=== PATIENT | male | born 1995 | race Caucasian/White ===

== ENCOUNTER 2020-12-29 15:12 | Emergency (ER) | payer OTHER, SELFPAY ==
[2020-12-29 15:17] VITALS: BP 123/66; PULSE 77; RESP 20; TEMP 36.7; O2SAT 96
--- NOTE | 2020-12-29 15:28 | ED.GENADUL_ITS ---
Discharge Plan Disposition Patient Disposition: HOME Condition: Stable Discharge Details Clinical Impression: Hand laceration Primary Care Provider: Unknown,Unknown ED Provider: Laurel Steven Home Meds and New Rx's Prescriptions: New cephalexin 500 mg capsule 500 mg PO TID 5 Days Qty: 15 RF: 0 Discharge Instructions Instructions: Laceration (ED) Additional Instructions: Keep wound clean and dry. Cover wound with bandage if risk of contamination. Otherwise you can keep the wound open to air if resting at home to allow edges to dry and heal. Alternate tylenol and motrin as needed and directed for pain. A prescription for antibiotics was sent electronically to your pharmacy. Return to the emergency department in 7 days for suture removal. Return immediately to the emergency department if you develop any worsening or new concerning symptoms. Discharge Data Discharge Physician: Laurel Steven Medical Decision Making 25-year-old male presents with left hand laceration sustained after fall while mountain biking prior to arrival. He has a 2 cm straight laceration extending through the dermis and fatty tissue on the left palmar proximal hand. Bleeding controlled. Minimal contamination. No obvious deformity. Will give a Boostrix as he is unsure of his tetanus status and refer for x-ray. Due to high volume and acuity in the ED, procedure performed by SANDEE Riggs. Please see her procedure note for details. Patient had 6 nylon 4-0 sutures placed. Due to significant contamination of wound, will cover with antibiotics. Patient given a dose of Keflex here and prescription sent electronically to his pharmacy. Advised return to the ED in 7 days for suture removal. Usual and customary return precautions given prior to discharge. Medical Records Medical records reviewed: Yes I reviewed the patient's medical records. Imaging Data Radiologic Study: Radiologist's impression: XR Left Hand Exam date and time: 12/29/2020 3:37 PM Age: 25 years old Clinical indication: Injury or trauma; Other: Laceration on palm; Hand; Left TECHNIQUE: Imaging protocol: XR Left hand. Views: 3 or more views. COMPARISON: No relevant prior studies available. FINDINGS: Bones/joints: No evidence for a fracture. Alignment is anatomic. The joint spaces are preserved. Soft tissues: No evidence for a radiopaque foreign body. IMPRESSION: Unremarkable radiographic study. No fracture identified. HPI General Mode of arrival: ambulatory . Date/Time Provider Initiated Documentation: 12/29/20 15:20 . Limitations to Documentation: no limitations . Information obtained by: patient . HPI Narrative: Patient is a 25-year-old male presents with laceration to the left hand when he fell while mountain biking prior to arrival. Patient states he fell while biking and his left hand hit the dirt ground. [place]. He is unsure of his tetanus status but he thinks it may be up-to-date within 5 years. He denies any bony pain. Related Data Home Medications Medication Instructions Recorded Confirmed cephalexin 500 mg PO TID 5 Days #15 cap 12/29/20 Previous Rx's Medication Instructions Recorded cephalexin 500 mg PO TID 5 Days #15 cap 12/29/20 Allergies Allergy/AdvReac Type Severity Reaction Status Date / Time shrimp Allergy Other (See Unverified 12/29/20 15:20 Comment) General Stated Complaint: Laceration ORLIN: 4 Review of Systems All systems reviewed & are unremarkable except as noted in HPI and below PFSH Medical History (Updated 12/29/20 @ 16:57 by Laurel Steven DO) No active medical problems Surgical History (Updated 12/29/20 @ 15:20 by Sobeida Jiménez) No history of previous surgery Social History Smoking/Tobacco Use Status: Never Smoking risk assessment performed?: Yes Alcohol Intake: current Alcohol Intake frequency: a few times a week Alcohol type: beer Drug use: Never Substance use type: does not use Do you feel safe at home: Yes Do you feel safe in your relationship?: Yes Exam Const General: cooperative, healthy appearing and no acute distress HENMT Head: normal to inspection Mouth: oral mucosae normal Eyes General: appearance normal, both eyes and all related structures Neck Neck: normal visual inspection Resp Effort & Inspection: normal respiratory effort and able to speak in complete sentences Cardio Rate: regular rate Skin General skin exam: no rashes or lesions noted Neuro General: patient alert, patient awake and patient oriented x3 Motor: muscle tone normal throughout Extrem Hand/finger images: 1. 2cm straight laceration noted on left proximal palm of hand medially near ulnar wrist. Extends through the dermis with fatty tissue protruding through wo und. No obvious foreign body but there is some contamination consistent with dirt. Bleeding controlled. Other: No tenderness to palpation to left wrist. No L snuffbox tenderness. No bony deformity to hand or wrist. Psych Appearance: grossly normal Affect: normal affect Course Vital Signs Vital signs: Vital Signs Temperature 98.1 F 12/29/20 15:17 Pulse 77 12/29/20 15:17 Respiratory Rate 20 12/29/20 15:17 Blood Pressure 123/66 12/29/20 15:17 Pulse Oximetry 96 12/29/20 15:17 Temperature 98.1 F 12/29/20 15:17 Temperature Source Skin 12/29/20 15:17 Pulse 77 12/29/20 15:17 Respiratory Rate 20 12/29/20 15:17 Respiratory Effort Non-Labored 12/29/20 15:21 Blood Pressure 123/66 12/29/20 15:17 Blood Pressure Position Sitting 12/29/20 15:17 Pulse Oximetry 96 12/29/20 15:17 Oxygen Delivery Method Room Air 12/29/20 15:17 Oxygen Flow Rate 0 12/29/20 15:17 Pain Level 2 12/29/20 15:17
--- NOTE | 2020-12-29 15:30 | DI.RAD_ITS ---
Exam(s) XR HAND LT COMPLETE EXAM: XR HAND LT COMPLETE CLINICAL HISTORY: hit L hand on ground, lac L palm. TECHNIQUE: 2D digital imaging was performed. COMPARISON: No exams were available for comparison FINDINGS: No evidence of fracture nor dislocation. No osseous lesions. No radiopaque foreign body. IMPRESSION: No significant radiographic findings. DATA REPOSITORY: RADIATION DOSE DELIVERED:
--- NOTE | 2020-12-29 16:15 | DI.VRAD_ITS ---
PROCEDURE INFORMATION: Exam: XR Left Hand Exam date and time: 12/29/2020 3:37 PM Age: 25 years old Clinical indication: Injury or trauma; Other: Laceration on palm; Hand; Left TECHNIQUE: Imaging protocol: XR Left hand. Views: 3 or more views. COMPARISON: No relevant prior studies available. FINDINGS: Bones/joints: No evidence for a fracture. Alignment is anatomic. The joint spaces are preserved. Soft tissues: No evidence for a radiopaque foreign body. IMPRESSION: Unremarkable radiographic study. No fracture identified. Dictated and Authenticated by: Arsenio Bernal MD. Ordering:FRANCES Barragan MD
--- NOTE | 2020-12-29 16:56 | W.ED.PROC ---
Date of service: 12/29/20 Time of Service: 16:56 Procedures Laceration Laceration 1: Site: hand Side (If applicable): left Size (cm): 3 Description: linear and irregular Depth: simple, single layer Local Anesthetic: Lidocaine 1% and with Epi Amount of anesthesia used (mL): 2 Pre-repair: wound explored, irrigated extensively, deep structures intact and extensive debridement (Sub cutaneous tissue) Skin layer closed with: nylon and other (Wound contaminated, irrigated extensively) Size (cm): 4-0 Number of sutures: 6 Technique: simple, interrupted
[2020-12-29] MEDS: Cephalexin 500 MG CAP, 2 CAPS/BTL PO (17:05)
[2020-12-29] MEDS: Cephalexin 500 MG CAP PO (17:05)
[2020-12-29 17:09] VITALS: BP 139/69; PULSE 55; RESP 14; TEMP 37; O2SAT 98
== END 2020-12-29 17:15 | disposition home or self-care (01) ==
PROVIDERS: Emergency Provider Physician Assistant
DX: S61.412A Laceration without foreign body of left hand, initial encounter (principal); V19.9XXA Pedal cyclist (driver) (passenger) injured in unspecified traffic accident, initial encounter
CPT/HCPCS: 12002; 90471; 99284; 73130; 99283